=== PATIENT | male | born 1965 | race Caucasian/White ===

== ENCOUNTER 2025-01-04 14:12 | Emergency (ER) | payer OTHER ==
--- OUTSIDE RECORDS SUMMARY | 2025-01-04 14:17 | XMS REPORT | Continuity of Care Document ---
Author Name Unknown Address [address] [facility] [address] [place] [address] [facility] Address [address] [facility] 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 Phone Miguel CORTEZ, Priscila Tee [facility] SHE[facility] MUIR Attending Clinician Unavailable MARILYN HARRINGTON Attending Clinician Unavailable MINGO VELASCO Attending Clinician Unavailab MEEK Boyd Attending Clinician Unavailab MAURI Salamanca Attending Clinician Unavailable [id number] Attending Clinician Unavailable NESTOR HUMPHREYS Attending Clinician Unavailable [id number] Attending Clinician Unavailable PRISCILA RIVERA Attending Clinician Unavailable SHAHLA HOLBROOK Attending Clinician U DOLLY De Paz Attending Clinician Unava ilable ZIYAD GLORIA Attending Clinician Unavailable [id number] Attending Clinician Unavailable DECLAN SANDHU Attending Clinician Unavailable MD HELLEN Attending Clinician Unavailab eleni RADIOLOGY, DEPT Attending Clinician Unavailable SUJEY CLAYTON Attending Clinician Unavailable XAVI CHÁVEZ Attending Clinician Unavailable CRISS PETERSEN Attending Clinician Unava ilable PRO TALBERT Attending Clinician Unavailable ALEXX HIRSCH Attending Clinician Unavailable RICHIE PERKINS Attending Clinician Unavailable FRAN GUARDADO Attending Clinician Unavailab KATIA Otto Attending Clinician Unav SISI Ramos Attending Clinician UnavailSUSI Moreno Attending Clinician Unavailable LAB47 Attending Clinician Unavailable FL1, [id number] Attending Clinician Unavailable Minor CORTEZ, Shelly Attending Clinician Miguel CORTEZ, Priscila Tee Attending Clinic jenn MAHAMED WATSON Attending Clinician Unavail able Payers Payer Name Policy Type Policy Number Effective Date Expirati on Date Source [facility] 2019 9 [id number] 2022 00:00:00 Problems Condition Name Condition Details Condition Category Status Onset Date Resolution Date Last Treatment Date Treating Clinician Comments Source Sensorineu ral hearing loss (SNHL) of both ears Sensorineu ral hearing loss (SNHL) of both ears Disease Active 12-20 00:00: 00 Althea Seedenold - Externa l Mixed hyperlipid emia Mixed hyperlipid emia Disease Active 12-20 00:00: 00 Althea Davenportold - Externa l History of dysplastic nevus History of dysplastic nevus Disease Active 9 00:00: 00 Althea Davenportold - Externa l Migraine Migraine Disease Active 04-27 00:00: 00 Althea Davenportold - Externa l Allergies, Adverse Reactions, Alerts Allergy Name Allergy Type Status Severity Reaction(s) Onset Date Inactive Date Treating Clinician Comments Source Na Benzoate -Sulfame thoxazol e-Trimet hoprim Propensi ty to adverse reaction s Active Rash 2023-10 00:00: 00 Althea Davenportold - Externa l Topirama te Propensi ty to adverse reaction s Active 01-13 00:00: 00 Althea Davenportold Topirama te Propensi ty to adverse reaction s Active 01-13 00:00: 00 Althea Douglas - Externa l Fd&C Yellow #10 Aluminum Garza-Top iramate Propensi ty to adverse reaction s Active Other 2014-10 00:00: 00 Vision issues Althea Davenportold - Externa l Social History Social Habit Start Date Stop Date Quantity Comments Source History of tobacco use Chews Tobacco Althea Douglas - External Gender identity Negrita Douglas - External Sexual orientation David Douglas - External History SDOH Alcohol Frequency Althea lao - External History SDOH Alcohol Std Drinks Althea griffith - External History SDOH Alcohol Binge Althea Douglas - External History of Occupation Althea Douglas - External Alcoholic beverage intake 2024-12-20 00:00:00 2024-12-20 00:00:00 .86 /d Althea Douglas - External Alcohol intake 2023-11-20 00:00:00 2023-11-20 00:00:00 Current drinker of alcohol (finding) Althea Douglas - External History of Social function 2023-04-21 00:00:00 2023-04-21 00:00:00 Althea Aguirreedenfransisca - External Tobacco use and exposure 2023-04-03 00:00:00 2023-04-03 00:00:00 Former smokeless tobacco user Althea Douglas - External Exposure to SARS-CoV-2 (event) 2022-06-25 00:00:00 2022-07-05 10:49:00 Not sure Althea Douglas - External Alcohol Comment 2015-06-24 00:00:00 2015-06-24 00:00:00 Occasionally Althea Douglas - External Sex 2015-02-04 23:17:01 2015-02-04 23:17:01 Male (finding) Althea Douglas - External Sex [birth year] at 1965 00:00:00 1965 00:00:00 Althea Douglas - External Smoking Status Start Date Stop Date Source Never smoked tobacco Althea Aguirreedenfransisca - External Medications Ordered Medication Name Filled Medication Name Start Date Stop Date Current Medication? Ordering Clinician Indication Dosage Frequency Signature (SIG) Comments Components Source Atorvastati n Calcium 40 MG oral Tablet 12-20 00:00: 00 Yes [id number] 40mg QD Take 1 tablet (40 mg total) by mouth daily. Althea joshi FLUTICASONE PROPIONATE, NASAL, 50 MCG/ACT nasal Suspension 12-09 00:00: 00 01-09 04:59 :00 Yes [id number] 100ug Q.5D Use 2 sprays (100 mcg total) in each nostril 2 times daily. Althea joshi Fluocinolon e Acetonide (DermOtic) 0.01 % otic Oil 3-03 00:00: 00 12-20 00:00 :00 No [id number] 5[drp] Q.5D Place 5 drops into both ears 2 times daily. Althea joshi Triamcinolo ne Acetonide 0.1 % apply externally Ointment 2-18 00:00: 00 12-20 00:00 :00 No [id number] Apply to affected areas twice daily for up to two weeks. Then use as needed to affected areas.. Althea joshi Tamsulosin HCl 0.4 MG oral Capsule 1-10 00:00: 00 Yes [id number] .4mg QD Take 1 capsule (0.4 mg total) by mouth daily. Althea joshi Atorvastanina n Calcium 40 MG oral Tablet 9-13 00:00: 00 12-20 00:00 :00 No 40mg QD Take 1 tablet (40 mg total) by mouth daily. Althea joshi Na Sulfate-K Sulfate-Mg Sulf (SUPREP BOWEL PREP KIT) 17.5-3.13-1 .6 GM/177ML oral Solution 9-11 00:00: 00 Yes [id number] Instructio ns provided to patient. Follow instructio ns provided by provider.. Althea joshi Atorvastati n Calcium 40 MG oral Tablet 9-10 00:00: 00 Yes 40mg QD Take 1 tablet (40 mg total) by mouth daily. Althea joshi Metoprolol Tartrate (LOPRESSOR) 50 MG oral Tablet 8-05 00:00: 00 12-20 00:00 :00 No TAKE 1 TABLET BY MOUTH ONCE FOR [address] MORNING OF [address] STUDY Althea joshi Tamsulosin HCl 0.4 MG oral Capsule 7-17 00:00: 00 Yes [id number] .4mg QD Take 1 capsule (0.4 mg total) by mouth daily. Althae joshi Ciprofloxac in-dexAMETH asone 0.3-0.1 % otic Suspension 02-01 00:00: 00 12-20 00:00 :00 No [id number] 3[drp] Q.5D Place 3 drops into the left ear 2 times daily. Althea joshi Lorazepam (ATIVAN) 0.5 MG oral Tablet tablet 01-28 00:00: 00 12-20 00:00 :00 No .5mg [id number] 3D Take 1 tablet (0.5 mg total) by mouth every 8 hours as needed for anxiety Take 2 tablets po upon arrival to MRI for claustroph obia.. Althea joshi Cephalexin (Keflex) 500 MG oral Capsule 01-28 00:00: 00 02-01 00:00 :00 No 500mg Take 1 capsule (500 mg total) by mouth 4 times daily. Althea joshi Clotrimazol e-Betametha sone 1-0.05 % apply externally Cream 3-18 00:00: 00 12-20 00:00 :00 No [id number] Apply to rash as needed twice daily. Althea joshi Gabapentin 300 MG oral Capsule 2-12 00:00: 00 02-01 00:00 :00 No 1 po q HS x 7 days, then 1 po BID x 7 days, then 1 po TID. Althea joshi Gabapentin 300 MG oral Capsule 2022-10 1-06 00:00: 00 Yes 1 po q HS x 7 days, then 1 po BID x 7 days, then 1 po TID. Althea joshi Lorazepam (ATIVAN) 0.5 MG oral Tablet tablet 2022-10- 00:00: 00 Yes Take 2 tablets po upon arrival to MRI for claustroph obia.. Althea joshi Gabapentin 300 MG oral Capsule 8-21 00:00: 00 Yes 300mg Take 1 capsule (300 mg total) by mouth 3 times daily. Althea joshi Gabapentin 300 MG oral Capsule 6-20 00:00: 00 Yes 300mg Take 1 capsule (300 mg total) by mouth 3 times daily Althea joshi methylPREDN ISolone 4 MG oral Tablet Therapy Pack 6-14 00:00: 00 04-03 00:00 :00 No 1{stevan} Take 1 stevan by mouth See Admin Instructio ns Use as directed Althea joshi Efinaconazo le (Jublia) 10 % apply externally Solution - 00:00: 00 11-20 00:00 :00 No [id number] Apply to affected nail(s) once daily Althea joshi TRIMETHOPRI M-SULFAMETH OXAZOLE (BACTRIM DS) 800-160 MG oral Tablet 01-09 00:00: 00 04-03 00:00 :00 No 1{tbl} Take 1 tablet by mouth 2 times daily for 7 days Althea joshi methylPREDN ISolone 4 MG oral Tablet Therapy Pack 2021-10 00:00: 00 Yes 1{stevan} Take 1 stevan by mouth See Admin Instructio ns Use as directed Althea joshi Efinaconazo le (Jublia) 10 % apply externally Solution 03-02 00:00: 00 07-05 00:00 :00 No Apply to affected nail daily Althea joshi methylPREDN ISolone 4 MG oral Tablet Therapy Pack 01-13 00:00: 00 Yes [id number] 9100 1{stevan} Take 1 stevan by mouth See Admin Instructio ns Use as directed Althea Douglas No known medications 06-16 13:49: 06 No No known medication s Althea Douglas Immunizations Ordered Immunization Name Filled Immunization Name Date Status Comments Source Influenza Virus Vaccine, age 6 months and up 2021-07-12 00:00:00 Completed Althea Douglas - External Influenza Virus Vaccine, age 6 months and up 2021-07-12 00:00:00 Completed Althea Heath External Influenza Virus Vaccine, age 6 months and up 2021-07-12 00:00:00 Completed Althea Seybold - External Influenza Virus Vaccine, age 6 months and up 2021-07-12 00:00:00 Completed Althea Seybold Influenza Virus Vaccine, age 6 months and up 2021-07-12 00:00:00 Completed Althea Seybold Influenza Virus Vaccine, age 6 months and up 2021-07-12 00:00:00 Completed Althea Seybold - External Influenza Virus Vaccine, age 6 months and up 2020-06-29 00:00:00 Completed Althea Seybold - External Influenza Virus Vaccine, age 6 months and up 2020-06-29 00:00:00 Completed Althea Seybold - External Influenza Virus Vaccine, age 6 months and up 2020-06-29 00:00:00 Completed Althea Seybold - External Influenza Virus Vaccine, age 6 months and up 2020-06-29 00:00:00 Completed Althea Seybold Influenza Virus Vaccine, age 6 months and up 2020-06-29 00:00:00 Completed Althea Seybold Influenza Virus Vaccine, age 6 months and up 2020-06-29 00:00:00 Completed Althea Seybold Influenza Virus Vaccine, age 6 months and up 2020-06-29 00:00:00 Completed Althea Seybold - External Influenza Virus Vaccine, age 6 months and 2019-07-15 00:00:00 Completed Althea Seybold - External Influenza Virus Vaccine, age 6 months and 2019-07-15 00:00:00 Completed Althea Seybold - External Influenza Virus Vaccine, age 6 months and 2019-07-15 00:00:00 Completed Althea Seybold - External Influenza Virus Vaccine, age 6 months and 2019-07-15 00:00:00 Completed Althea Seybold Influenza Virus Vaccine, age 6 months and up 2019-07-15 00:00:00 Completed Althea Seybold Influenza Virus Vaccine, age 6 months and 2019-07-15 00:00:00 Completed Althea Seybold Influenza Virus Vaccine, age 6 months and 2019-07-15 00:00:00 Completed Althea Seybold - External Influenza Virus Vaccine, age 6 months and up 2018-07-18 00:00:00 Completed Althea Seybold - External Influenza Virus Vaccine, age 6 months and 2018-07-18 00:00:00 Completed Althea Seybold - External Influenza Virus Vaccine, age 6 months and up 2018-07-18 00:00:00 Completed Althea Seybold - External Influenza Virus Vaccine, age 6 months and up 2018-07-18 00:00:00 Completed Althea Seybold Influenza Virus Vaccine, age 6 months and up 2018-07-18 00:00:00 Completed Althea Seybold Influenza Virus Vaccine, age 6 months and up 2018-07-18 00:00:00 Completed Althea Seybold Influenza Virus Vaccine, age 6 months and up 2018-07-18 00:00:00 Completed Althea Seybold - External Influenza Virus Vaccine, age 6 months and up 2017-07-11 00:00:00 Completed Althea Seybold - External Influenza Virus Vaccine, age 6 months and up 2017-07-11 00:00:00 Completed Althea Seybold - External Influenza Virus Vaccine, age 6 months and up 2017-07-11 00:00:00 Completed Althea Seybold - External Influenza Virus Vaccine, age 6 months and up 2017-07-11 00:00:00 Completed Althea Seybold Influenza Virus Vaccine, age 6 months and up 2017-07-11 00:00:00 Completed Althea Seybold Influenza Virus Vaccine, age 6 months and up 2017-07-11 00:00:00 Completed Althea Seybold Influenza Virus Vaccine, age 6 months and up 2017-07-11 00:00:00 Completed Althea Seybold - External Influenza Virus Vaccine, age 6 months and up 2015-07-13 00:00:00 Completed Althea Seybold - External Influenza Virus Vaccine, age 6 months and up 2015-07-13 00:00:00 Completed Althea Seybold - External Influenza Virus Vaccine, age 6 months and up 2015-07-13 00:00:00 Completed Althea Seybold - External Influenza Virus Vaccine, age 6 months and up 2015-07-13 00:00:00 Completed Althea Seybold Influenza Virus Vaccine, age 6 months and up 2015-07-13 00:00:00 Completed Althea Seybold Influenza Virus Vaccine, age 6 months and up 2015-07-13 00:00:00 Completed Althea Seybold Influenza Virus Vaccine, age 6 months and up 2015-07-13 00:00:00 Completed Althea Seybold - External Tdap- (Boostrix, Adacel) 2013-04-26 00:00:00 Completed Althea Seybold - External Tdap- (Boostrix, Adacel) 2013-04-26 00:00:00 Completed Althea Seybold - External Tdap- (Boostrix, Adacel) 2013-04-26 00:00:00 Completed Althea Seybold - External Tdap- (Boostrix, Adacel) 2013-04-26 00:00:00 Completed Althea Seybold Tdap- (Boostrix, Adacel) 2013-04-26 00:00:00 Completed Althea Seybold Tdap- (Boostrix, Adacel) 2013-04-26 00:00:00 Completed Althea Seybold Tdap- (Boostrix, Adacel) 2013-04-26 00:00:00 Completed Althea Seybold - External Tdap- (Boostrix, Adacel) Unknown Completed Althea Seybold - External Influenza Virus Vaccine, age 6 months and up Unknown Completed Althea Seybold - External Tdap- (Boostrix, Adacel) Unknown Completed Althea Seybold - External Influenza Virus Vaccine, age 6 months and up Unknown Completed Althea Seybold - External Influenza Virus Vaccine, Unspecified Formulation Unknown Completed Althea Seybold - External Tdap- (Boostrix, Adacel) Unknown Completed Althea Seybold - External Influenza Virus Vaccine, age 6 months and up Unknown Completed Althea Seybold - External Influenza Virus Vaccine, Unspecified Formulation Unknown Completed Althea Seybold - External Tdap- (Boostrix, Adacel) Unknown Completed Althea Seybold - External Influenza Virus Vaccine, age 6 months and up Unknown Completed Althea Seybold - External Influenza Virus Vaccine, Unspecified Formulation Unknown Completed Althea Seybold - External Tdap- (Boostrix, Adacel) Unknown Completed Althea Seybold - External Influenza Virus Vaccine, age 6 months and up Unknown Completed Althea Seybold - External Influenza Virus Vaccine, Unspecified Formulation Unknown Completed Althea Seybold - External Tdap- (Boostrix, Adacel) Unknown Completed Althea Seybold - External Influenza Virus Vaccine, age 6 months and up Unknown Completed Althea Seybold - External Influenza Virus Vaccine, Unspecified Formulation Unknown Completed Althea Seybold - External Tdap- (Boostrix, Adacel) Unknown Completed Althea Aguirreybold - External Influenza Virus Vaccine, age 6 months and up Unknown Completed Althea Seybold - External Influenza Virus Vaccine, Unspecified Formulation Unknown Completed Althea Seybold - External Tdap- (Boostrix, Adacel) Unknown Completed Althea Aguirreybold - External Influenza Virus Vaccine, age 6 months and up Unknown Completed Althea Seybold - External Influenza Virus Vaccine, Unspecified Formulation Unknown Completed Althea Seybold - External Tdap- (Boostrix, Adacel) Unknown Completed Althea Seybold - External Influenza Virus Vaccine, age 6 months and up Unknown Completed Althea Seybold - External Influenza Virus Vaccine, Unspecified Formulation Unknown Completed Althea Seybold - External Vital Signs Vital Name Observation Time Observation Value Comments S ource Systolic blood pressure 2024-12-20 13:02:00 134 mm[Hg] Althea Aguirreybo ld - External Diastolic blood pressure 2024-12-20 13:02:00 72 mm[Hg] Althea Aguirreybo ld - External Heart rate 2024-12-20 13:02:00 63 /min Kel y Seybold - External Body temperature 2024-12-20 13:02:00 36.5 Rula Althea Seybold - External Respiratory rate 2024-12-20 13:02:00 15 /min Althea Aguirreybold - External Body height 2024-12-20 13:02:00 185.4 cm Negrita ey Seybold - External Body weight 2024-12-20 13:02:00 102.967 kg Negrita ey Seybold - External BMI 2024-12-20 13:02:00 29.95 kg/m2 Negrita ey Seybold - External Oxygen saturation in Arterial blood by Pulse oximetry 2024-12-20 13:02:00 97 /min Althea Davenporto ld - External Body height 2024-12-09 14:16:00 185.4 cm Negrita ey Seybold - External Body weight 2024-12-09 14:16:00 102.059 kg Negrita ey Seybold - External BMI 2024-12-09 14:16:00 29.69 kg/m2 Negrita ey Seybold - External Systolic blood pressure 2024-04-24 13:07:00 114 mm[Hg] Althea Aguirreybo ld - External Diastolic blood pressure 2024-04-24 13:07:00 56 mm[Hg] Althea Aguirreybo ld - External Heart rate 2024-04-24 13:07:00 70 /min Kelse y Seybold - External Body temperature 2024-04-24 13:07:00 36.44 Rula Althea Seybold - External Respiratory rate 2024-04-24 13:07:00 18 /min Althea Seybold - External Body height 2024-04-24 13:07:00 185.4 cm Negrita ey Seybold - External Body weight 2024-04-24 13:07:00 105.688 kg w/shoes Negrita ey Seybold - External BMI 2024-04-24 13:07:00 30.74 kg/m2 Negrita ey Seybold - External Oxygen saturation in Arterial blood by Pulse oximetry 2024-04-24 13:07:00 97 /min Althea Aguirreybo ld - External Systolic blood pressure 2024-02-02 12:49:00 124 mm[Hg] Althea Aguirreybo ld - External Diastolic blood pressure 2024-02-02 12:49:00 68 mm[Hg] Althea Aguirreybo ld - External Heart rate 2024-02-02 12:49:00 89 /min Danielse y Seybold - External Body temperature 2024-02-02 12:49:00 35.56 Rula Althea Aguirreybold - External Respiratory rate 2024-02-02 12:49:00 15 /min Althea Seybold - External Body height 2024-02-02 12:49:00 185.4 cm Negrita ey Seybold - External Body weight 2024-02-02 12:49:00 104.781 kg Negrita ey Seybold - External BMI 2024-02-02 12:49:00 30.48 kg/m2 Negrita ey Seybold - External Body height 2023-11-20 16:43:00 185.4 cm Negrita ey Seybold - External Body weight 2023-11-20 16:43:00 106.595 kg Negrita ey Seybold - External BMI 2023-11-20 16:43:00 31.00 kg/m2 Negrita ey Seybold - External Systolic blood pressure 2023-11-20 15:36:00 132 mm[Hg] Althea Seybo ld - External Diastolic blood pressure 2023-11-20 15:36:00 68 mm[Hg] Althea Seybo ld - External Heart rate 2023-11-20 15:36:00 64 /min Danielse y Seybold - External Body temperature 2023-11-20 15:36:00 30.67 Rula Althea Seybold - External Respiratory rate 2023-11-20 15:36:00 18 /min Althea Seybold - External Body weight 2023-11-20 15:36:00 106.595 kg Negrita ey Seybold - External BMI 2023-11-20 15:36:00 31.00 kg/m2 Negrita ey Seybold - External Oxygen saturation in Arterial blood by Pulse oximetry 2023-11-20 15:36:00 98 /min Althea Aguirreybo ld - External Body height 2023-08-14 13:58:00 185.4 cm Negrita ey Seybold - External Body weight 2023-08-14 13:58:00 99.791 kg Negrita ey Seybold - External BMI 2023-08-14 13:58:00 29.03 kg/m2 Negrita ey Seybold - External Body weight 2023-04-03 18:05:00 105.688 kg Negrita ey Seybold - External BMI 2023-04-03 18:05:00 30.74 kg/m2 Negrita ey Seybold - External BMI 2022-07-05 15:44:00 29.82 kg/m2 Negrita ey Seybold - External Oxygen saturation in Arterial blood by Pulse oximetry 2022-07-05 15:44:00 98 /min Althea Aguirreybo ld - External Systolic blood pressure 2022-07-05 15:44:00 124 mm[Hg] Althea Seybo ld - External Diastolic blood pressure 2022-07-05 15:44:00 68 mm[Hg] Althea Aguirreybo ld - External Heart rate 2022-07-05 15:44:00 62 /min Danielse y Seybold - External Body temperature 2022-07-05 15:44:00 36.5 Rula Althea Seybold - External Respiratory rate 2022-07-05 15:44:00 18 /min Althea Seybold - External Body height 2022-07-05 15:44:00 185.4 cm Negrita ey Seybold - External Body weight 2022-07-05 15:44:00 102.513 kg w/ shoes Negrita ey Seybold - External Systolic blood pressure 2022-01-13 13:22:00 122 mm[Hg] Althea Seybo ld Diastolic blood pressure 2022-01-13 13:22:00 62 mm[Hg] Althea Seybo ld Heart rate 2022-01-13 13:22:00 66 /min Kelse y Seybold Body temperature 2022-01-13 13:22:00 36.44 Rula Althea Seybold Respiratory rate 2022-01-13 13:22:00 18 /min Althea Seybold Body height 2022-01-13 13:22:00 185.4 cm Negrita ey Seybold Body weight 2022-01-13 13:22:00 106.595 kg with boots Negrita ey Seybold BMI 2022-01-13 13:22:00 31.00 kg/m2 Negrita ey Seybold Procedures Procedure Date / Time Performed Performing Clinicia n Source CHEST PA LATERAL 2024-04-24 13:36:40 Siri Rivera - External KNEE ROUTINE 40 YEARS AND OLDER BILATERAL 2022-01-13 14:06:51 Priscila Rivera Encounters Start Date/Time End Date/Time Encounter Type Admission Type Attending [facility] Facility Care Department Encounter ID Source 2025-04-04 08:00:00 2025-04-04 08:00:00 Outpatient SHELLY MUIR [id number] Althea ybfransisca 2025-01-28 11:20:00 2025-01-28 11:20:00 Outpatient [facility]N [facility]ARR[id number] [facility] 2025-01-28 08:40:00 2025-01-28 08:40:00 Outpatient MINGO VELASCO [id number] Althe[facility] 2025-01-04 12:30:00 2025-01-04 12:30:00 Outpatient MEEK JEFFREY ALTHEA JIMENEZ [id number] Althea Seybold 2025-01-04 00:00:00 2025-01-04 00:00:00 Outpatient MAURI FONSECA ALTHEA JIMENEZ [id number] Althea Seybfransisca 2025-01-04 00:00:00 2025-01-04 00:00:00 Outpatient MAURI FONSECA ALTHEA JIMENEZ [id number] [facility] 2024-12-26 08:50:00 2024-12-26 08:50:00 Outpatient LAB90 ALTHEA JIMENEZ [id number] [facility] 2024-12-24 00:00:00 2024-12-24 00:00:00 Outpatient NESTOR HUMPHREYS ALTHEA JIMENEZ [id number] [facility] 2024-12-24 00:00:00 2024-12-24 00:00:00 Outpatient NESTOR HUMPHREYS ALTHEA JIMENEZ [id number] [facility] 2024-12-20 09:15:00 2024-12-20 09:15:00 Outpatient [id number] ALTHEA JIMENEZ [id number] [facility] 2024-12-20 08:30:00 2024-12-20 08:30:00 Outpatient NESTOR HUMPHREYS ALTHEA JIMENEZ [id number] [facility] 2024-12-13 00:00:00 2024-12-13 00:00:00 Outpatient PRISCILA RIVERA [id number] [facility] 2024-12-09 09:15:00 2024-12-09 09:15:00 Outpatient SHELLY MUIR [id number] [facility] 2024-12-09 08:00:00 2024-12-09 08:00:00 Outpatient SHAHLA STYLES [id number] [facility] 2024-11-26 09:30:00 2024-11-26 09:30:00 [id number] [facility]24-[facility]-21 00:00:2024-11-21 00:00:00 Outpatient PRISCILA RIVERA ALTHEA JIMENEZ [id number] [facility] 2024-10-17 00:00:00 2024-10-17 00:00:00 Outpatient PRISCILA RIVERA ALTHEA JIMENEZ [id number] [facility]a [facility] 2024-08-28 00:00:00 2024-08-28 00:00:00 Outpatient PRISCILA RIVERA [facility]IMENEZ [id number] [facility] 2024-08-26 09:00:00 2024-08-26 09:00:00 Outpatient FAIZAN, ZIYADOBED JIMENEZ [id number] Al[facility] 2024-08-09 10:00:00 2024-08-09 10:00:00 Outpatient TREEduard7 ALTHEA JIMENEZ [id number] Althea [facility] 2024-07-09 14:45:00 2024-07-09 14:45:00 Outpatient DECLAN SANDHU [id number] Al[facility] 2024-06-25 00:00:00 2024-06-25 00:00:00 Outpatient ALTHEA JIMENEZ [id number] Al[facility] 2024-06-25 00:00:00 2024-06-25 00:00:00 Outpatient MD ALTHEA CONWAY [id number] Al[facility] 2024-06-25 00:00:00 2024-06-25 00:00:00 Outpatient MD ALTHEA CONWAY [id number] Al[facility] 2024-06-21 00:00:00 2024-06-21 00:00:00 Outpatient MIGUELPRISCILA ALTHEA JIMENEZ [id number] [facility] 2024-06-19 15:30:00 2024-06-19 15:30:00 Outpatient ZIYAD GLORIA [id number] [facility] 2024-06-19 15:30:00 2024-06-19 15:30:00 Outpatient ZIYAD GLORIA [id number] [facility] 2024-06-19 00:00:00 2024-06-19 00:00:00 Outpatient MD ALTEHA CONWAY [id number] [facility]a [facility] 2024 09:00:00 2024 09:00:00 Outpatient ALTHEA JIMENEZ [id number] Althea Stella 2024-06-11 11:15:00 2024-06-11 11:15:00 Outpatient CHINO MUIRITA ALTHEA JIMENEZ [id number] Althea Aguirreybfransisca 2024-06-07 11:40:00 2024-06-07 11:40:00 Outpatient LAB90 ALTHEA JIMENEZ [id number] Althea Stella 2024-06-07 00:00:00 2024-06-07 00:00:00 Outpatient SHELLY MUIR [id number] [facility] 2024-05-13 00:00:00 2024-05-13 00:00:00 Outpatient PRISCILA RIVERA [id number] [facility] 2024-05-12 00:00:00 2024-05-12 00:00:00 Outpatient PRISCILA RIVERA [id number] [facility] 2024-05-11 00:00:00 2024-05-11 00:00:00 Outpatient PRISCILA RIVERA [id number] Althea [facility] 2024-05-10 00:00:00 2024-05-10 00:00:00 Outpatient PRISCILA RIVERA [id number] Althea [facility] 2024-05-09 00:00:00 2024-05-09 00:00:00 Outpatient PRISCILA RIVERA [id number] [facility] 2024-04-29 00:00:00 2024-04-29 00:00:00 Outpatient RADIOLOGY, DEPT ALTHEA JIMENEZ [id number] [facility] 2024-04-26 00:00:00 2024-04-26 00:00:00 Outpatient PRISCILA RIVERA [id number] Althea [facility] 2024-04-24 08:45:00 2024-04-24 08:45:00 Outpatient SUJEY CLAYTONSEY [id number] [facility] 2024-04-24 08:25:00 2024-04-24 08:25:00 Outpatient ALTHEA JIMENEZ [id number] Althea [facility]ansisca 2024-04-24 08:00:00 2024-04-24 08:00:00 Outpatient RIVERAPRISCILA ALTHEA JIMENEZ [id number] [facility] 2024-04-24 00:00:00 2024-04-24 00:00:00 Outpatient KYLERXAVI ALTHEA JIMENEZ [id number] [facility] 2024-02-02 08:00:00 2024-02-02 08:00:00 Outpatient JETT PETERSENAN ALTHEA JIMENEZ [id number] [facility] 2024-01-28 00:00:00 2024-01-28 00:00:00 Outpatient MIGUELPRISCILA [facility] [id number] [facility] 15:15:00 2024-01-24 15:15:00 Outpatient SUJEY CLAYTON ALTHEA JIMENEZ [id number] [facility] 2024-01-10 00:00:00 2024-01-10 00:00:00 Outpatient BERNIEPRO Varela ALTHEA JIMENEZ [id number] [facility] 2023-12-24 00:00:00 2023-12-24 00:00:00 Outpatient MIGUELPRISCILA ALTHEA JIMENEZ [id number] [facility] 2023-12-07 09:15:00 2023-12-07 09:15:00 Outpatient ALEXX HIRSCH [id number] [facility] 2023-12-07 08:45:00 2023-12-07 08:45:00 Outpatient ALTHEA JIMENEZ [id number] Althea [facility] 2023-12-06 00:00:00 2023-12-06 00:00:00 Outpatient ALEXX HIRSCH [id number] [facility] 2023-12-06 00:00:00 2023-12-06 00:00:00 Outpatient RICHIE PERKINS [id number] Althea Douglas 2023-11-24 08:00:00 2023-11-24 08:00:00 Outpatient TREEduard7 ALTHEA JIMENEZ [id number] Althea Douglas 2023-11-24 00:00:00 2023-11-24 00:00:00 Outpatient ALEXX HIRSCH ALTHEA JIMENEZ [id number] Althea Douglas 2023-11-24 00:00:00 2023-11-24 00:00:00 Outpatient ALTHEA JIMENEZ [id number] Althea Stella 2023-11-23 00:00:00 2023-11-23 00:00:00 Outpatient ALEXX HIRSCH ALTHEA JIMENEZ [id number] Althea Douglas 2023-11-22 00:00:00 2023-11-22 00:00:00 Outpatient CATY, SUJEY ALTHEA JIMENEZ [id number] Althea Douglas 2023-11-21 00:00:00 2023-11-21 00:00:00 Outpatient CLAYTON, SUJEY ALTHEA JIMENEZ [id number] Althea [facility] 2023-11-20 10:45:00 2023-11-20 10:45:00 Outpatient CLAYTON, SUJEY ALTHEA JIMENEZ [id number] Althea [facility] 2023-11-20 09:15:00 2023-11-20 09:15:00 Outpatient PRISCILA RIVERA [id number] Althea Douglas 2023-11-17 08:00:00 2023-11-17 08:00:00 Outpatient LAB90 ALTHEA JIMENEZ [id number] Althea fransisca 2023-11-15 11:00:00 2023-11-15 11:00:00 Outpatient FRAN GUARDADO [id number] [facility] 2023-11-13 00:00:00 2023-11-13 00:00:00 Outpatient PRISCILA RIVERA [id number] [facility] 2023-11-02 00:00:00 2023-11-02 00:00:00 [facility] [id number] [facility]23-10-25 07:45:00 2023-10-25 07:45:00 Outpatient ALTHEA JIMENEZ [id number] [facility] 2023-10-25 00:00:00 2023-10-25 00:00:00 Outpatient MD ALTHEA CONWAY [id number] Althea [facility] 2023-08-30 00:00:00 2023-08-30 00:00:00 Outpatient MD ALTHEA CONWAY [id number] [facility] 2023-08-28 00:00:00 2023-08-28 00:00:00 Outpatient ALTHEA JIMENEZ [id number] [facility] 2023-08-15 00:00:00 2023-08-15 00:00:00 Outpatient PRISCILA RIVERA [id number] [facility] 2023-08-14 09:05:00 2023-08-14 09:05:00 Outpatient ALTHEA JIMENEZ [id number] [facility] 2023-08-14 09:00:00 2023-08-14 09:00:00 Outpatient ALTHEA JIMENEZ [id number] [facility] 2023-08-14 08:00:00 2023-08-14 08:00:00 Outpatient SUJEY CLAYTON [id number] [facility] 2023-08-14 00:00:00 2023-08-14 00:00:00 Outpatient ALTHEA JIMENEZ [id number] [facility] 2023-06-29 00:00:00 2023-06-29 00:00:00 Outpatient PRISCILA RIVERA [id number] [facility] 2023-05-29 00:00:00 2023-05-29 00:00:00 Outpatient PRISCILA RIVERA [id number] Althea [facility] 2023-05-22 08:45:00 2023-05-22 08:45:00 Outpatient KATIA OWENS [id number] [facility] 2023-04-25 00:00:00 2023-04-25 00:00:00 Outpatient PRISCILA RIVERA [id number] Althe[facility] 2023-04-21 14:30:00 2023-04-21 14:30:00 Outpatient SISI AGUILLON ALTHEA JIMENEZ [id number] [facility] 2023-04-07 00:00:00 2023-04-07 00:00:00 Outpatient CECILY, SUSI ALTHEA JIMENEZ [id number] Al[facility] 2023-04-06 08:30:00 2023-04-06 08:30:00 Outpatient SANDHU DECLAN JIMENEZ [id number] Althea [facility] 2023-04-05 13:30:00 2023-04-05 13:30:00 Outpatient ALTHEA JIMEENZ [id number] [facility] 2023-04-03 14:00:00 2023-04-03 14:00:00 Outpatient CECILY, SUSI ALTHEA JIMENEZ [id number] [facility] 2023-04-03 12:25:00 2023-04-03 12:25:00 Outpatient ALTHEA JIMENEZ [id number] [facility] 2023-04-03 00:00:00 2023-04-03 00:00:00 Outpatient CECILY, SUSI ALTHEA JIMENEZ [id number] [facility] 2023-03-22 08:30:00 2023-03-22 08:30:00 Outpatient SHELLY MUIR ALTHEA JIMENEZ [id number] Al[facility] 2023-03-20 00:00:00 2023-03-20 00:00:00 Outpatient PRISCILA RIVERA [id number] [facility] 2023-03-13 00:00:00 2023-03-13 00:00:00 Outpatient PRISCILA RIVERA [id number] [facility] 2023-02-08 00:00:00 2023-02-08 00:00:00 Outpatient DECLAN SANDHU [id number] [facility] 2023-01-09 00:00:00 2023-01-09 00:00:00 Outpatient PRISCILA RIVERA [id number] [facility] 2023-01-05 10:15:00 2023-01-05 10:15:00 Outpatient DECLAN SANDHU ALTHEA JIMENEZ [id number] Althea Douglas 2022-09-13 00:00:00 2022-09-13 00:00:00 Outpatient PRISCILA RIVERA [id number] Althea Douglas 2022-09-06 07:30:00 2022-09-06 07:30:00 Outpatient MUIR, SHELLY ALTHEA JIMENEZ [id number] Althea Douglas 2022-07-05 11:15:00 2022-07-05 11:15:00 Outpatient LAB47 ALTHEA JIMENEZ [id number] Althea Stella 2022-07-05 10:30:00 2022-07-05 10:30:00 Outpatient PRISCILA RIVERA [id number] Althea Douglas 2022-03-17 00:00:00 2022-03-17 00:00:00 Outpatient PRISCILA RIVERA [id number] Althea [facility] 2022-03-02 08:10:00 2022-03-02 08:10:00 Outpatient FL1, [id number] ALTHEA JIMENEZ [id number] Althea Douglas 2022-03-02 07:45:00 2022-03-02 08:00:00 Office Visit [facility] [id number] Althea Stella 2022-01-13 09:10:00 2022-01-13 09:10:00 Outpatient LABTerri ALTHEA JIMENEZ [id number] Althea Douglas 2022-01-13 08:30:00 2022-01-13 08:45:00 Office Visit Priscila Rivera [id number] Althea Stella 2022-01-13 08:40:00 2022-01-13 08:40:00 Outpatient ALTHEA JIMENEZ [id number] Althea [facility] 2021-12-28 08:00:00 2021-12-28 08:00:00 Outpatient MAHAMED WATSON ALTHEA [id number] Althea Douglas 2021-12-24 00:00:00 2021-12-24 00:00:00 Outpatient MAHAMED WATSON ALTHEA ALTHEA [id number] Althea Douglas 2021-12-14 08:30:00 2021-12-14 08:30:00 Outpatient SHELLY MUIR ALTHEA JIMENEZ [id number] Althea Douglas 2021-06-16 13:44:15 2021-06-16 13:59:15 Office Visit [facility] [id number] Althea Douglas 2021-06-16 07:25:00 2021-06-16 07:25:00 Outpatient FL1, [id number] ALTHEA JIMENEZ [id number] Althea Douglas 2021-06-16 00:00:00 2021-06-16 00:00:00 Outpatient PRISCILA RIVERA ALTHEA JIMENEZ [id number] Althea Douglas 2021-06-15 08:45:00 2021-06-15 08:45:00 Outpatient LAB47 ALTHEA JIMENEZ [id number] Althea Douglas 2021-06-15 08:00:00 2021-06-15 08:00:00 Outpatient MAHAMED WATSON ALTHEA JIMENEZ [id number] Althea Douglas 2021-04-22 08:30:00 2021-04-22 08:30:00 Outpatient SHELLY MUIR ALTHEA JIMENEZ [id number] Althea Stella Results Test Description Test Time Test Comments Results Resul t Comments Source CHEST PA LATERAL 2024-04-08 7 13:38:37 EXAM: CHEST PA ?LATERAL HISTORY: shortness of breath VIEWS: 3 views COMPARISON: None FINDINGS: The lungs are clear. No pleural effusion or pneumothorax. The cardiomediastinal silhouette is normal. No acute osseous abnormality within the visible skeleton. Althea Douglas - External History and Physical Notes Date/Time Note Provider Source 2024-06-19 15:41:27 Reason for consultation: Colon cancer screening HPI Patient here for colon cancer screening. Denies nausea, vomiting, abdominal pain or diarrhea. No melena or blood in stool. This is a televisit I am in my office and patient is at home. Family History of Colon Cancer: No Prior colonoscopy: 2018 Past Medical History: Past Medical History: Diagnosis Date Adenomatous colon polyp Adverse effect of anesthesia 1987 patient was aware of beginning of procedure Headache(784.0) Rarely History of dysplastic nevus 06/17/2021 Hyperlipidemia Migraine Past Surgical History: Past Surgical History: Procedure Laterality Date COLONOSCOPY WITH SNARE N/A 07/01/2015 Performed by Pro Talbert MD at [facility] COLONOSCOPY WITH TOTAL INTRAVENOUS ANESTHESIA N/A 10/24/2018 Performed by Pro Talbert MD at [facility] COLONOSCOPY, FLEXIBLE; WITH BIOPSY, SINGLE OR MULTIPLE 07/01/2015 Serrated repeat in 3 yrs-2018 LAMINECTOMY 2006 C-5 LUMBAR/SACRAL INTERLAMINAR EPIDURAL STEROID INJECTION N/A 12/07/2023 Performed by Alexx Hirsch MD at [facility] PILONIDAL CYST EXCISION 1987 REPAIR OF REDUCIBLE UMBILICAL HERNIA, > 5 YEARS N/A 05/31/2018 Performed by Juwan Brown MD at [facility] VASECTOMY Family History: Family History Problem Relation Name Age of Onset Hypertension Mother Cancer Neg Hx Blood Disease Neg Hx Diabetes Mellitus Neg Hx Heart Disease Neg Hx Stroke Neg Hx Anesthesia Problems Neg Hx Social History: Social History Socioeconomic History Marital status: Spouse name: Not on file Number of children: 2 Years of education: 13 Highest education level: Not on file Occupational History 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 NO STDs. 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 CARDIOVASCULAR: No chest pain or palpitations GASTROINTESTINAL: As per HPI PULMONARY: No dyspnea or cough PE: There were no vitals taken for this visit. Assessment/Plan: Colon cancer screening: Risks associated with colonoscopy including perforation requiring surgery, bleeding, reaction to medications and missed lesions discussed. Patient understands and agrees. Please note that patient want colonoscopy with TIVA. [facility] 2023-11-20 08:01:07 HPI: Ronnie Lee presents for aggravation of chronic right lumbar pain extending into right thigh to right proximal knee. No lower extremity intermittent numbness . Subjective bilateral extremity weakness with pain. Onset since 2016. Aggravation mainly with prolonged gait. Pain level is 4 out of 10 at present . No bladder/bowel incontinence. Previous treatments also include consultation with orthopedics, Dr. Briseno, and received right sacroiliac injection under fluoroscopy March 2023 with no benefits.. Patient denies previous spine surgery, JACK/TPI, and formal physical therapy.Symptoms are now daily, wax and wanes, and is achy in quality. 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 HENT: - for neck pain, neck stiffness and sinus pressure. Eyes: Negative for visual disturbance. Cardiovascular: Negative for palpitations and leg swelling. Gastrointestinal: Negative for nausea, vomiting, abdominal pain, diarrhea, constipation, blood in stool, anal bleeding and rectal pain. Musculoskeletal: + for back pain and gait problem. Negative for myalgias, joint swelling and arthralgias. Neurological: Negative for dizziness, tremors, seizures, syncope, speech difficulty, weakness, light-headedness, numbness and headaches. This Psychiatric/Behavioral: Negative for dysphoric mood and decreased concentration. Past Medical History: Diagnosis Date Adverse effect of anesthesia 1987 patient was aware of beginning of procedure Headache(784.0) Rarely History of dysplastic nevus 06/17/2021 Migraine Past Surgical History: Procedure Laterality Date COLONOSCOPY WITH SNARE N/A 07/01/2015 Performed by Pro Talbert MD at [facility] COLONOSCOPY WITH TOTAL INTRAVENOUS ANESTHESIA N/A 10/24/2018 Performed by Pro Talbert MD at [facility] COLONOSCOPY, FLEXIBLE; WITH BIOPSY, SINGLE OR MULTIPLE 07/01/2015 Serrated repeat in 3 yrs-2018 LAMINECTOMY 2007 C-5 PILONIDAL CYST EXCISION 1988 REPAIR OF REDUCIBLE UMBILICAL HERNIA, > 5 YEARS N/A 05/31/2018 Performed by Juwan Brown MD at [facility] VASECTOMY Social History Tobacco Use Smoking status: Never Smokeless tobacco: Former Types: Chew Quit date: 2012 Substance Use Topics Alcohol use: Yes Comment: Occasionally Drug use: No Family History Problem Relation Name Age of Onset Hypertension Mother Cancer Neg Hx Blood Disease Neg Hx Diabetes Mellitus Neg Hx Heart Disease Neg Hx Stroke Neg Hx Anesthesia Problems Neg Hx Current Outpatient Medications on File Prior to Visit Medication Sig Dispense Refill Efinaconazole (Jublia) 10 % apply externally Solution Apply to affected nail(s) once daily (Patient not taking: Reported on 08/14/2023.) 8 mL 11 Gabapentin 300 MG oral Capsule 1 po q HS x 7 days, then 1 po BID x 7 days, then 1 po TID. 90 capsule 2 Gabapentin 300 MG oral Capsule Take 1 capsule (300 mg total) by mouth 3 times daily. (Patient not taking: Reported on 08/14/2023.) 90 capsule 0 Lorazepam (ATIVAN) 0.5 MG oral Tablet tablet Take 2 tablets po upon arrival to MRI for claustrophobia.. 6 tablet 0 No current facility-administered medications on file prior to visit. Physical Exam: General: Patient is well appearing and in no apparent distress Pulm: Respirations are regular and unlabored Skin: no rashes Patient is oriented to person, place and time. CN 2-12 are grossly intact bilaterally Motor exam: Decreased lumbar flexion/extension with right lumbar pain Trigger points: Right lumbar paraspinals Job's -, Spasticity- , Babinski - Motor strength Right Left Hip Flexion 5/5 5/5 Knee Ext. 5/5 5/5 Knee Flex 5/5 5/5 Dorsiflexion 5/5 5/5 EHL 5/5 5/5 Plantarflexion 5/5 5/5 DTRs Right Left Knee 2+ 2+ Ankle 1+ 1+ Sensation: Grossly intact DTR: Babinski: Normal Edema: No SLR Right: Equivocal to full elevation Left: Equivocal to full elevation Ronnie's: Negative Leg Length discrepancy: Negative Gait: Antalgic for the right lower extremity X-RAYS/MRI: March 2023 right hip:FINDINGS: There is arthrosis of the right hip joint with mild to moderate joint space narrowing, slightly progressed compared to 12/17/2020. There are small marginal osteophytes of the right acetabulum and right femoral head neck junction. January 2022 bilateral knee x-rayNo acute fracture is identified. Severe bilateral medial compartment narrowing present. No significant joint effusion is present. Tiny metallic foreign body seen within or just on top of the left patellar tendon measuring 1 mm in size. Bilateral suprapatellar enthesophyte. Small patellofemoral osteophytes noted bilaterally. December 2020 lumbar x-rayThere are 5 non rib bearing lumbar vertebral bodies. The vertebral body heights are equal. There is a decreased intervertebral disc space at L5-S1 Spondylolisthesis is not visualized. There is endplate sclerosis with early osteophytosis. The pedicles are unremarkable at L1-L4. The sacrum and sacroiliac joints are symmetric. There is endplate sclerosis and osteophyte formation at L4 and L5.. IMPRESSION: Degenerative changes the lower lumbar spine MRI lumbar October 2023Numbering: Last fully formed disc space is designated L5-S1. Spinal cord: The conus medullaris is normal in size, signal intensity, and position, terminating at the L1 level. Osseous structures: No scoliotic deformity is present. There is no significant spondylolisthesis. Pedicles are congenitally short. Vertebral body heights are preserved. No aggressive osseous lesions are identified. Discs: Degenerative disc disease manifest by loss of T2 hyperintensity and loss of disc height. Greatest disease burden at L5-S1. Individual level evaluation: L1/L2: No disc bulge. Bilateral facet arthropathy. No canal or foraminal stenosis. L2/L3: Minimal disc bulge. Bilateral facet hypertrophy. No canal narrowing. No foraminal stenosis. L3/L4: Minimal broad disc bulge. Left greater than right facet hypertrophy. Mild dorsal epidural lipomatosis. No canal narrowing. No foraminal stenosis. L4/L5: Mild broad disc bulge. Near symmetric facet hypertrophy. No canal narrowing. [id number] bilateral foraminal stenosis. L5/S1: Broad disc bulge. Near symmetric facet hypertrophy. No canal narrowing. Moderate left and mild right foraminal stenosis. Paraspinal soft tissues: A T2 hyperintense cystic focus in the liver is incompletely evaluated, but was present in the CT examination of the abdomen and pelvis August 28, 2017. Normal aortic caliber. IMPRESSION: 1. Relatively mild degenerative changes in the lumbar spine without critical canal or foraminal stenosis. Component Latest Ref Rng 11/17/2023 ALKALINE PHOSPHATASE, SERUM 39 - 119 U/L 59 AST (SGOT) 18 - 40 U/L 30 ALT (SGPT) 11 - 55 U/L 42 Component Latest Ref Rng 07/05/2022 HEMOGLOBIN A1C 4.8 - 5.6 % 5.6 ESTIM. AVG GLU (EAG) mg/dL 114 Diagnosis: Aggravation of chronic right radicular pain Moderate left and mild right L5-S1 foraminal narrowing Minimal/moderate right hip OA Advanced bilateral knee OA Plan: lumbar MRI images 2023 brought up on computer screen and reviewed with patient. Report/reading as per board certified radiologist also given to patient. Patient referred to formal REFERRAL TO PHYSICAL THERAPY SPINE-EXTERNAL: lumbar treatments: HEP reviewed and pamphlet given Potential option of Lumbar JACK discussed and pamphlet given : Possible complications of epidural steroid injections discussed in full to include: infection, bleeding, hemmorrage, puncture of internal organs, nerve injury, paralysis, even . Epidural steroid pamphlet as well as list of medications to avoid discussed and handed to patient for review. Patient is understandably frustrated to have pain persisting since 2016. He desired to proceed with lumbar JACK with TIVA. Interlaminar L5-S1 JACK with TIVA requested Patient defers surgical considerations Resume Gabapentin 300 MG oral Cap TID Follow up if still no alleviation This document was created using a voice recognition transcribing system. Incorrect words or phrases may have been missed during proofreading. Please interpret accordingly. O TRIMMER [facility] Notes Date/Time Note Provider Source 2024-12-20 08:06:49 Chief Complaint Patient presents with Physical Patient is fasting. No other concerns Fidelia Espinosa MA T [facility] 2024-12-09 08:17:08 Chief Complaint Patient presents with Ear Problem Patient complains of right ear hearing loss. Natividad Jaramillo MA [facility] 2024-11-26 08:51:14 Chief Complaint Patient presents with Skin Problem Marge Sullivan MA O TRIMMER Marge Sullivan MA [facility] 2024-06-19 15:22:51 Chief Complaint Patient presents with Colon Cancer Screening JOCELYN Porras Miranda BANKS [facility] 2024-04-24 08:18:22 Chief Complaint Patient presents with Urinary Hesitancy c/o here for difficulty in urination x 1 month Louann Owen LVN Patient's blood pressure taken in right arm with large size cuff. Louann Owen LVN Patient's height is 6 feet and 1 inches tall Louann Owen LVN [facility] 2024-02-02 07:53:17 Chief Complaint Patient presents with Ear Pain Left ear pain when he was cleaning with a q-tip. He did notice some blood. Fidelia Espinosa MA II Fidelia Espinosa MA, II [facility] 2023-11-20 10:42:14 Patient is here for f/u for back pain. Pain level is 4/10 Took no pain medication today. Pain does not radiate Major Diaz MA I [facility]
[2025-01-04 15:30] LABS: Albumin 3.7 g/dL (3.4-5.0); Albumin/Globulin Ratio 1.1 (1.1-1.8); Anion Gap 9.1 mEq/L (5.0-15.0); Bilirubin Total 0.7 mg/dL (0.2-1.0); Globulin 3.3 g/dL (2.3-3.5); Potassium 4.1 mEq/L (3.5-5.1)
[2025-01-04 15:44] LABS: Absolute Eosinophils 0.2 K/uL (0-0.5); Absolute Lymphocytes (CBC) 1.9 K/uL (0.7-4.9); Absolute Monocytes 0.5 K/uL (0.1-1.3); Absolute Neutrophil 3.3 K/uL (1.8-8.0); Basophils % 0.5 % (0-1.3); Hematocrit 43.9 % (39.6-49.0); Hemoglobin 14.9 g/dL (13.6-17.9); Lymphocytes % 32.2 % (15.3-44.8); MCH 31.1 pg (27.0-35.0); MCHC 33.9 g/dL (32.0-36.0); MCV 91.8 fL (80-100); MPV 10.7 fL (7.6-11.3); Monocytes % 8.3 % (3.3-12.3); Platelets 168 thou/uL (152-406); RBC Red Blood Cell Count 4.78 M/uL (4.33-5.43); Red Cell Distribution Width 13.3 % (12.1-15.2)
[2025-01-04 16:06] LABS: Specific Gravity 1.022 (1.005-1.030); Sqamous Epithelial None Seen /HPF (None Seen); Urine Bacteria None Seen /HPF (<20); Urine Bilirubin NEGATIVE (Negative); Urine Blood Negative (Negative); Urine Clarity Clear (Clear); Urine Color Light-Yellow (Yellow); Urine Culture Reflex Order NOT NEEDED; Urine Glucose NEGATIVE (Negative); Urine Ketones NEGATIVE (Negative); Urine Microscopic Reflex YN ORDER UMIC; Urine Nitrite NEGATIVE (Negative); Urine Protein NEGATIVE (Negative); Urine RBC <5 /HPF (None Seen); Urine Urobilinogen Normal (Normal); Urine WBC <5 /HPF (<5)
--- NOTE | 2025-01-04 17:05 | RAD REPORT ---
EXAMINATION: CT Abdomen Pelvis W Contrast CLINICAL INDICATION: Male, 59 years old. ABD PAIN TECHNIQUE: CT abdomen and pelvis was performed, after the administration of IV contrast, [facility]. Axial, sagittal and coronal reconstructions were obtained. One or more of the following dose reduction techniques were used: Automated exposure control, adjustment of the mA and k V according to patient size, and iterative reconstruction. Unless otherwise specified, incidental findings do not require dedicated imaging follow-up. COMPARISON: No prior exam. FINDINGS: LOWER CHEST: The visualized lung bases are clear. LIVER: Normal in size and contour. Within the inferior right lower lobe posteriorly a 2.6 cm well-cir cumscribed fluid density cyst is noted, benign in appearance. Other subcentimeter hypodense lesions may represent small cysts although not well characterized. No suspicious focal lesion. BILIARY SYSTEM: No suspicious abnormalities. SPLEEN: Normal size. No focal lesion. PANCREAS: No mass, ductal dilation, or gabriel-pancreatic fluid. ADRENALS: Normal; no mass. KIDNEYS: Normal size and contour. No hydronephrosis. URINARY BLADDER: Unremarkable. GASTROINTESTINAL TRACT: No evidence of free air, significant intra-abdominal free fluid, bowel obstru ction or abscess. APPENDIX: Normal appendix. LYMPH NODES: No lymphadenopathy. MUSCULOSKELETAL: No acute osseous abnormality. Lower lumbar spondylotic changes and bilateral SI join t degenerative changes with left iliac subchondral cyst containing vacuum/gas. ADDITIONAL FINDINGS: Right inguinal hernia containing fat, with sac measuring 3.5 x 3.7 cm in greates t axial dimensions. Small left inguinal hernia containing fat. IMPRESSION: Right inguinal hernia containing fat. Other incidental findings as above. No other acute or concerning abnormalities seen in the abdomen or pelvis.
--- NOTE | 2025-01-04 17:07 | ER ---
Nurse's Notes [facility] Name: Ronnie Lee Age: 59 yrs Sex: Male : 1965 Arrival Date: 01/04/2025 Time: 14:12 Bed 8 Private MD: Diagnosis: Inguinal hernia Presentation: 01/04 14:41 Chief complaint: Patient states: HERNIA TO RIGHT GROIN ONSET LAST NIGHT. PT REPORTS cm10 PAIN THAT IS GETTING WORSE. Coronavirus screen: Client denies travel out of the [place] in the last 14 days. Ebola Screen: Patient denies travel to an Ebola-affected area in the 21 days before illness onset. Initial Sepsis Screen: Does the patient meet any 2 criteria? No. Patient's initial sepsis screen is negative. Does the patient have a suspected source of infection? No. Patient's initial sepsis screen is negative. Risk Assessment: Do you want to hurt yourself or someone else? Patient reports no desire to harm self or others. Onset of symptoms was January 04, 2025. 14:41 Method Of Arrival: Ambulatory cm10 14:41 Acuity: JACK 3 cm10 Triage Assessment: 14:43 General: Appears in no apparent distress. uncomfortable, Behavior is calm, cooperative. cm10 Pain: Complains of pain in right femoral area Pain currently is 3 out of 10 on a pain scale. Neuro: No deficits noted. Level of Consciousness is awake, alert, obeys commands, Oriented to person, place, time, situation, Appropriate for age. Respiratory: No deficits noted. Airway is patent Respiratory effort is even, unlabored, Respiratory pattern is regular, symmetrical. Historical: - Allergies: 14:42 Topamax; cm10 - Home Meds: 14:42 Lipitor 40 mg Oral tablet [Active]; Flomax 0.4 mg Oral capsule [Active]; cm10 - PMHx: 14:42 Hypercholesterolemia; cm10 - PSHx: 14:42 HERNIA REPAIR- UMBILICAL; cm10 - Immunization history:: Adult Immunizations up to date. - Infectious Disease History:: Denies. - Social history:: Smoking status: Patient denies any tobacco usage or history of. Screenin:57 [facility] ED Fall Risk Assessment (Adult) History of falling in the last 3 months, iw including since admission No falls in past 3 months (0 pts) Confusion or Disorientation No (0 pts) Intoxicated or Sedated No (0 pts) Impaired Gait No (0 pts) Mobility Assist Device Used No (0 pt) Altered Elimination No (0 pt) Score/Fall Risk Level 0 - 2 = Low Risk Oriented to surroundings, Maintained a safe environment. Abuse screen: Denies threats or abuse. Denies injuries from another. Nutritional screening: No deficits noted. Tuberculosis screening: No symptoms or risk factors identified. Assessment: 15:10 General: Appears in no apparent distress. Behavior is calm, cooperative. Pain: iw Complains of pain in pelvis and right femoral area Pain currently is 2 out of 10 on a pain scale. Neuro: Level of Consciousness is awake, alert, obeys commands, Oriented to person, place, time, situation, Moves all extremities. Full function. Cardiovascular: Patient's skin is warm and dry. Respiratory: Respiratory effort is even, unlabored, Respiratory pattern is regular, symmetrical. GI: Abdomen is non-distended, Abd is soft in right upper quadrant and left upper quadrant Abdomen is tender to palpation in right lower quadrant. Derm: Skin is intact, is healthy with good turgor. Musculoskeletal: Range of motion: intact in all extremities. 16:58 Reassessment: Patient appears in no apparent distress at this time. Patient and/or iw family updated on plan of care and expected duration. Pain level reassessed. Patient is alert, oriented x 3, equal unlabored respirations, skin warm/dry/pink. Vital Signs: 14:41 BP 117 / 81; Pulse 67; Resp 17; Temp 97.3(IR); Pulse Ox 100% on R/A; Weight 103.42 kg; cm10 Height 6 ft. 1 in. ; Pain 3/10; 17:26 BP 121 / 79; Pulse 75; Resp 17; Pulse Ox 100% ; bp 14:41 Body Mass Index 30.08 (103.42 kg, 185.42 cm) cm10 14:41 Pain Scale: Adult cm10 ED Course: 14:17 Patient arrived in ED. sj2 14:17 Ivy Michelle MD is Attending Physician. sp3 14:42 Triage completed. cm10 14:43 Thomas Arguello, RN is Primary Nurse. bp 14:43 Arm band placed on right wrist. Patient placed in an exam room, on a stretcher. cm10 15:12 Initial lab(s) drawn, by me, sent to lab. Inserted saline lock: 20 gauge in right iw antecubital area, using aseptic technique. Blood collected. Flushed with 10 mL NS. 16:24 CT Abd/Pelvis - IV Contrast Only In Process Unspecified. EDMS 16:57 Patient has correct armband on for positive identification. Placed in gown. Cardiac iw monitor on. 17:06 Darci Huber MD is Referral Physician. sp3 17:26 No provider procedures requiring assistance completed. IV discontinued, intact, bp bleeding controlled, No redness/swelling at site. Pressure dressing applied. Administered Medications: No medications were administered Medication: 16:57 VIS not applicable for this client. iw Outcome: 17:06 Discharge ordered by . sp3 17:26 Discharged to home ambulatory, with family, bp 17:26 Condition: stable 17:26 Discharge instructions given to patient, Instructed on discharge instructions, follow up and referral plans. medication usage, Demonstrated understanding of instructions, follow-up care, medications, Prescriptions given X 1, 17:27 Patient left the ED. bp Signatures: Dispatcher [employer] EDMS Philomena Freeman, RN RN iw Thomas Arguello RN RN bp Ivy Michelle MD MD sp3 Sara Brewer RN RN cm10 Jazmine Tipton 2
--- NOTE | 2025-01-04 17:07 | EDPHYS ---
Physician Documentation [facility] Name: Ronnie Lee Age: 59 yrs Sex: Male : 1965 Arrival Date: 01/04/2025 Time: 14:12 Bed 8 Private MD: ED Physician Ivy Michelle HPI: 01/04 15:42 This 59 yrs old Male presents to ER via Ambulatory with complaints of HERNIA. sp3 15:42 59-year-old male with history of hyperlipidemia presents to the ED with right inguinal sp3 swelling and pain concerns of hernia. 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 He denies any other symptoms or prior surgeries in the abdomen. He denies headache, neck pain, chest pain, shortness of breath, upper abdominal pain, back pain, dysuria, urinary frequency, bleeding, GI bleeding, vomiting, diarrhea or any other signs or symptoms on ROS at this time.. Historical: - Allergies: 14:42 Topamax; cm10 - Home Meds: 14:42 Lipitor 40 mg Oral tablet [Active]; Flomax 0.4 mg Oral capsule [Active]; cm10 - PMHx: 14:42 Hypercholesterolemia; cm10 - PSHx: 14:42 HERNIA REPAIR- UMBILICAL; cm10 - Immunization history:: Adult Immunizations up to date. - Infectious Disease History:: Denies. - Social history:: Smoking status: Patient denies any tobacco usage or history of. ROS: 15:44 Constitutional: Negative for fever, chills, and weight loss, Eyes: Negative for injury, sp3 pain, redness, and discharge, Neck: Negative for injury, pain, and swelling, Cardiovascular: Negative for chest pain, palpitations, and edema, Respiratory: Negative for shortness of breath, cough, wheezing, and pleuritic chest pain, Back: Negative for injury and pain, MS/Extremity: Negative for injury and deformity, Skin: Negative for injury, rash, and discoloration, Neuro: Negative for headache, weakness, numbness, tingling, and seizure, Psych: Negative for depression, anxiety, suicide ideation, homicidal ideation, and hallucinations, Allergy/Immunology: Negative for hives, rash, and allergies, Endocrine: Negative for neck swelling, polydipsia, polyuria, polyphagia, and marked weight changes, 15:44 All other systems are negative, Exam: 15:44 Constitutional: This is a well developed, well nourished patient who is awake, alert, sp3 and in no acute distress. Head/Face: Normocephalic, atraumatic. Eyes: Pupils equal round and reactive to light, extra-ocular motions intact. Lids and lashes normal. Conjunctiva and sclera are non-icteric and not injected. Cornea within normal limits. Periorbital areas with no swelling, redness, or edema. Neck: Trachea midline, no thyromegaly or masses palpated, and no cervical lymphadenopathy. Supple, full range of motion without nuchal rigidity, or vertebral point tenderness. No Meningismus. Chest/axilla: Normal chest wall appearance and motion. Nontender with no deformity. No lesions are appreciated. Cardiovascular: Regular rate and rhythm with a normal S1 and S2. No gallops, murmurs, or rubs. Normal PMI, no JVD. No pulse deficits. Respiratory: Lungs have equal breath sounds bilaterally, clear to auscultation and percussion. No rales, rhonchi or wheezes noted. No increased work of breathing, no retractions or nasal flaring. Back: No spinal tenderness. No costovertebral tenderness. Full range of motion. Skin: Warm, dry with normal turgor. Normal color with no rashes, no lesions, and no evidence of cellulitis. MS/ Extremity: Pulses equal, no cyanosis. Neurovascular intact. Full, normal range of motion. Neuro: Awake and alert, GCS 15, oriented to person, place, time, and situation. Cranial nerves II-XII grossly intact. Motor strength 5/5 in all extremities. Sensory grossly intact. Cerebellar exam normal. Normal gait. Psych: Awake, alert, with orientation to person, place and time. Behavior, mood, and affect are within normal limits. 15:44 Abdomen/GI: Right inguinal swelling consistent with inguinal hernia noted., Vital Signs: 14:41 BP 117 / 81; Pulse 67; Resp 17; Temp 97.3(IR); Pulse Ox 100% on R/A; Weight 103.42 kg; cm10 Height 6 ft. 1 in. ; Pain 3/10; 17:26 BP 121 / 79; Pulse 75; Resp 17; Pulse Ox 100% ; bp 14:41 Body Mass Index 30.08 (103.42 kg, 185.42 cm) cm10 14:41 Pain Scale: Adult cm10 MDM: 14:47 Medical Screening Exam initiated sp3 15:45 Data reviewed: vital signs, nurses notes, lab test result(s), radiologic studies. ED sp3 course: 59-year-old male with right inguinal hernia versus other pathology. Will obtain CT scan of the abdomen pelvis, routine labs and consult general surgery as needed. Disposition pending workup and patient course. Abdomen soft and patient is in no acute distress. Nonsurgical abdomen. Vital signs normal. Pain is controlled.. 01/04 14:47 Order name: CBC with Diff; Complete Time: 16:07 sp3 01/04 14:47 Order name: CMP; Complete Time: 16:07 sp3 01/04 14:47 Order name: Lipase; Complete Time: 16:07 sp3 01/04 14:47 Order name: Urinalysis w/ reflexes; Complete Time: 16:07 sp3 01/04 14:47 Order name: CT Abd/Pelvis - IV Contrast Only; Complete Time: 17:06 sp3 01/04 14:47 Order name: IV Saline Lock; Complete Time: 15:05 sp3 01/04 14:47 Order name: Labs collected and sent; Complete Time: 15:05 sp3 Administered Medications: No medications were administered Disposition Summary: 01/04/25 17:06 Discharge Ordered Notes: Location: Home sp3 Condition: Stable sp3 Diagnosis - Inguinal hernia sp3 Followup: sp3 - With: Darci Huber MD - When: Upon discharge from the Emergency Department - Reason: Continuance of care Discharge Instructions: - Discharge Summary Sheet sp3 - Inguinal Hernia, Adult sp3 Forms: - Medication Reconciliation Form sp3 - Antibiotic Education sp3 - Prescription Opioid Use sp3 - Patient Portal Instructions sp3 - Leadership Thank You Letter sp3 Prescriptions: - Tramadol 50 mg Oral Tablet - take 1 tablet ORAL route every 8 hours as needed; 12 tablet; Refills: 0, sp3 Product Selection Permitted Signatures: Dispatcher [employer] Ivy Bobo MD MD sp3 Sara Brewer RN RN cm10
[2025-01-04 17:50] VITALS: TEMP 97.3; O2SAT 100
[2025-01-04 17:51] VITALS: BP 121/79
== END 2025-01-04 17:27 | disposition home or self-care (01) ==
LOC: ER 14:12
DX: K40.90 Unilateral inguinal hernia, without obstruction or gangrene, not specified as recurrent (principal)
CPT/HCPCS: 85025; 81001; 36415; 83690; 80053; 74177; Q9967; 99284

== ENCOUNTER 2025-06-24 21:35 | Emergency (ER) | payer OTHER ==
[2025-06-24] MEDS ORDERED: HYDROCODONE/APAP 10/325 TAB ONE (22:15)
[2025-06-24] MEDS ORDERED: CYCLOBENZAPRINE 10 MG TAB ONE (22:15)
[2025-06-24] MEDS ORDERED: CEPHALEXIN 250 MG CAP ONE (22:35)
--- NOTE | 2025-06-24 23:40 | ER ---
Nurse's Notes [facility] Name: Ronnie Lee Age: 60 yrs Sex: Male : 1965 Arrival Date: 06/24/2025 Time: 21:35 Bed 5 Private MD: Diagnosis: Acute left arm superficial thrombophlebitis, acute superficial thrombosis of left basilic and left cephalic veins Presentation: 06/24 22:03 Chief complaint: Patient states: left arm pain and swelling post IV insertion on 06/20. lg3 Coronavirus screen: Client denies travel out of the [place] in the last 14 days. At this time, the client does not indicate any symptoms associated with coronavirus-19. Ebola Screen: No symptoms or risks identified at this time. Initial Sepsis Screen: Does the patient meet any 2 criteria? No. Patient's initial sepsis screen is negative. Does the patient have a suspected source of infection? No. Patient's initial sepsis screen is negative. Risk Assessment: Do you want to hurt yourself or someone else? Patient reports no desire to harm self or others. Onset of symptoms is unknown. 22:03 Method Of Arrival: Ambulatory lg3 22:03 Acuity: JACK 3 lg3 Triage Assessment: 22:05 General: Appears in no apparent distress. uncomfortable, Behavior is calm, cooperative. lg3 Pain: Complains of pain in left arm. EENT: No deficits noted. No signs and/or symptoms were reported regarding the EENT system. Neuro: No deficits noted. [place] Agitation-Sedation Scale (RASS): 0 - Alert and Calm Level of Consciousness is awake, alert, obeys commands, Oriented to person, place, time, situation. Cardiovascular: No deficits noted. Denies chest pain, shortness of breath, Capillary refill < 3 seconds Clubbing of nail beds is absent JVD is absent Patient's skin is warm and dry. Respiratory: No deficits noted. Airway is patent Respiratory effort is even, unlabored, Respiratory pattern is regular, symmetrical. GI: No deficits noted. No signs and/or symptoms were reported involving the gastrointestinal system. : No signs and/or symptoms were reported regarding the genitourinary system. Derm: No deficits noted. No signs and/or symptoms reported regarding the dermatologic system. Skin is intact, is healthy with good turgor, Skin is dry, Skin is normal, Skin temperature is warm. Musculoskeletal: Circulation, motion, and sensation intact. Range of motion: intact in all extremities, Swelling present in left arm. Historical: - Allergies: 22:05 Topamax; lg3 - PMHx: 22:05 Hypercholesterolemia; lg3 - PSHx: 22:05 HERNIA REPAIR- UMBILICAL; spinal (HERNIA REPAIR- UMBILICAL); lg3 - Immunization history:: Adult Immunizations up to date. - Infectious Disease History:: Denies. - Social history:: Smoking status: Patient denies any tobacco usage or history of. Patient uses alcohol, occasionally. - Family history:: not pertinent. Screenin:00 [facility] ED Fall Risk Assessment (Adult) History of falling in the last 3 months, vc1 including since admission No falls in past 3 months (0 pts) Confusion or Disorientation No (0 pts) Intoxicated or Sedated No (0 pts) Impaired Gait No (0 pts) Mobility Assist Device Used No (0 pt) Altered Elimination No (0 pt) Score/Fall Risk Level 0 - 2 = Low Risk Oriented to surroundings, Maintained a safe environment, Educated pt \T\ family on fall prevention, incl call for assistance when getting out of bed, Assessed \T\ reinforced patient's understanding of fall precautions, Hourly rounding (assess needs \T\ fall precautionary measures) done. Abuse screen: Denies threats or abuse. Nutritional screening: No deficits noted. Tuberculosis screening: No symptoms or risk factors identified. Assessment: 22:00 General: Appears in no apparent distress. uncomfortable, well groomed, well developed, vc1 well nourished, Behavior is calm, cooperative, appropriate for age. Pain: Complains of pain in left arm Pain does not radiate. Pain currently is 5 out of 10 on a pain scale. Quality of pain is described as pressure. Neuro: Level of Consciousness is awake, alert, obeys commands, Oriented to person, place, time, situation, Appropriate for age. Cardiovascular: Heart tones S1 S2 present Capillary refill < 3 seconds. Cardiovascular: Edema present in left arm. Respiratory: Airway is patent Respiratory effort is even, unlabored, Respiratory pattern is regular, symmetrical, Breath sounds are clear bilaterally. GI: No deficits noted. No signs and/or symptoms were reported involving the gastrointestinal system. : No deficits noted. No signs and/or symptoms were reported regarding the genitourinary system. EENT: Pt in neck brace from cervical surgery on 06/20/25. Derm: Skin is intact, Skin is dry, Skin is normal, Skin temperature is warm. Musculoskeletal: Circulation, motion, and sensation intact. Range of motion: intact in all extremities. 22:56 Reassessment: Patient appears in no apparent distress at this time. No changes from vc1 previously documented assessment. Patient and/or family updated on plan of care and expected duration. Pain level reassessed. Patient is alert, oriented x 3, equal unlabored respirations, skin warm/dry/pink. 06/25 00:20 Reassessment: Patient appears in no apparent distress at this time. Patient and/or vc1 family updated on plan of care and expected duration. Pain level reassessed. Patient is alert, oriented x 3, equal unlabored respirations, skin warm/dry/pink. Patient states feeling better. Patient states symptoms have improved. 00:22 Reassessment: No changes from previously documented assessment. Patient and/or family br2 updated on plan of care and expected duration. Pain level reassessed. Patient is alert, oriented x 3, equal unlabored respirations, skin warm/dry/pink. Patient states feeling better. Patient states symptoms have improved. Vital Signs: 06/24 22:03 BP 170 / 94; Pulse 61; Resp 16 S; Temp 97.9(O); Pulse Ox 100% on R/A; Weight 104.33 kg lg3 (R); Height 6 ft. 1 in. (R); Pain 6/10; 22:56 BP 146 / 82; Pulse 56; Resp 15; Pulse Ox 100% ; vc1 06/25 00:00 BP 138 / 71; Pulse 57; Resp 16; Pulse Ox 97% ; vc1 00:21 BP 145 / 82; Pulse 62; Resp 18 S; Pulse Ox 99% on R/A; br2 06/24 22:03 Body Mass Index 30.34 (104.33 kg, 185.42 cm) lg3 06/24 22:03 Pain Scale: Adult lg3 [place] Coma Score: 07:40 Eye Response: spontaneous(4). Motor Response: obeys commands(6). Verbal Response: sp4 oriented(5). Total: 15. ED Course: 06/24 21:38 Patient arrived in ED. gm2 22:02 Pelon Howard MD is Attending Physician. sp4 22:04 Triage completed. lg3 22:05 Arm band placed on right wrist. lg3 22:05 Patient has correct armband on for positive identification. Bed in low position. Call vc1 light in reach. Provided Education on: Plan of care. Pulse ox on. NIBP on. 22:08 Rita Tello, RN is Primary Nurse. kb4 22:08 Inserted saline lock: 20 gauge in right antecubital area, using aseptic technique. kb4 Blood collected. Flushed with 10 mL NS. 22:35 UPPER EXTREMITY VENOUS UNILATE In Process Unspecified. EDMS 06/25 00:20 IV discontinued, intact, bleeding controlled, No redness/swelling at site. Pressure br2 dressing applied. 00:24 No provider procedures requiring assistance completed. vc1 Administered Medications: 06/24 22:18 Drug: [place] PO 10 mg-325 mg 1 tabs PO once Route: PO; vc1 23:00 Follow up: Response: No adverse reaction; Marked relief of symptoms; Pain is decreased vc1 22:18 Drug: Cyclobenzaprine PO 10 mg PO once Route: PO; vc1 23:00 Follow up: Response: No adverse reaction; Marked relief of symptoms vc1 22:37 Drug: Cephalexin PO 500 mg PO once Route: PO; vc1 06/25 00:22 Follow up: Response: No adverse reaction vc1 Medication: 00:21 VIS not applicable for this client. br2 Outcome: 06/24 23:39 Discharge ordered by . sp4 06/25 00:23 Patient left the ED. br2 00:24 Discharged to home ambulatory, with significant other, vc1 00:24 Condition: stable 00:24 Discharge instructions given to patient, Instructed on discharge instructions, follow up and referral plans. medication usage, Demonstrated understanding of instructions, follow-up care, medications, Prescriptions given X 1, Signatures: Dispatcher [employer] EDMS Abril Cordoba RN RN lg3 Angela Bran RN RN vc1 Pelon Howard MD MD sp4 Deb Carroll gm2 Amanda Fox RN RN br2 Rita Tello, JOSHUA RN kb4
--- NOTE | 2025-06-24 23:40 | EDPHYS ---
Physician Documentation [facility] Name: Ronnie Lee Age: 60 yrs Sex: Male : 1965 Arrival Date: 06/24/2025 Time: 21:35 Bed 5 Private MD: ED Physician Pelon Howard HPI: 06/24 22:02 This 60 yrs old Other Race Male presents to ER via Unassigned with complaints of Arm sp4 Pain, arm swelling/ post op neck surgery on 06-20-25. 06/25 07:40 60-year-old male with arm pain and swelling left upper arm postop after 06/20/2025 sp4 anterior neck fusion. Patient is concerned about DVT in the left upper arm.. Historical: - Allergies: 06/24 22:05 Topamax; lg3 - PMHx: 22:05 Hypercholesterolemia; lg3 - PSHx: 22:05 HERNIA REPAIR- UMBILICAL; spinal (HERNIA REPAIR- UMBILICAL); lg3 - Immunization history:: Adult Immunizations up to date. - Infectious Disease History:: Denies. - Social history:: Smoking status: Patient denies any tobacco usage or history of. Patient uses alcohol, occasionally. - Family history:: not pertinent. ROS: 06/25 07:40 Constitutional: Negative for fever, chills, and weight loss, Eyes: Negative for injury, sp4 pain, redness, and discharge, ENT: Negative for injury, pain, and discharge, Neck: Negative for injury, positive for postoperative anterior incision, patient is wearing neck brace Cardiovascular: Negative for chest pain, palpitations, and edema, Respiratory: Negative for shortness of breath, cough, wheezing, and pleuritic chest pain, Abdomen/GI: Negative for abdominal pain, nausea, vomiting, diarrhea, and constipation, Back: Negative for injury and pain, MS/Extremity: Negative for injury and deformity, Skin: Negative for injury, rash, and discoloration, Neuro: Negative for headache, weakness, numbness, tingling, and seizure, Psych: Negative for depression, anxiety, All other systems are negative, Exam: 07:40 Constitutional: This is a well developed, well nourished patient who is awake, alert, sp4 and in no acute distress. Head/Face: Normocephalic, atraumatic. Eyes: Pupils equal round and reactive to light, extra-ocular motions intact. Lids and lashes normal. Conjunctiva and sclera are not injected. Cornea within normal limits. Periorbital areas with no swelling, redness, or edema. ENT: Nares patent. No nasal discharge, no septal abnormalities noted. Tympanic membranes are normal and external auditory canals are clear. Oropharynx with no redness, swelling, or masses, exudates, or evidence of obstruction, uvula midline. Mucous membranes moist. Neck: Trachea midline, no thyromegaly or masses palpated, positive for postop anterior neck incision from recent neck fusion. Chest/axilla: Normal chest wall appearance and motion. Nontender with no deformity. No lesions are appreciated. Cardiovascular: Regular rate and rhythm with a normal S1 and S2. No gallops, murmurs, or rubs. No pulse deficits. Respiratory: Lungs have equal breath sounds bilaterally, clear to auscultation and percussion. No rales, rhonchi or wheezes noted. No increased work of breathing, no retractions or nasal flaring. Abdomen/GI: Soft, with normal bowel sounds. No distension or tympany. No guarding or rebound. No evidence of tenderness throughout. Back: No spinal tenderness. No costovertebral tenderness. Skin: Warm, dry with normal turgor. Normal color with no rashes, no lesions, positive for redness small amount of swelling just medial to the left antecubital fossa tracking to the left medial upper arm MS/ Extremity: Pulses equal, no cyanosis. Neurovascular intact. Full, normal range of motion. Neuro: Awake and alert, GCS 15, oriented to person, place, time, and situation. Cranial nerves II-XII grossly intact. Motor strength 5/5 in all extremities. Sensory grossly intact. Psych: Awake, alert, with orientation to person, place and time. Behavior, mood, and affect are within normal limits Vital Signs: 06/24 22:03 BP 170 / 94; Pulse 61; Resp 16 S; Temp 97.9(O); Pulse Ox 100% on R/A; Weight 104.33 kg lg3 (R); Height 6 ft. 1 in. (R); Pain 6/10; 22:56 BP 146 / 82; Pulse 56; Resp 15; Pulse Ox 100% ; vc1 06/25 00:00 BP 138 / 71; Pulse 57; Resp 16; Pulse Ox 97% ; vc1 00:21 BP 145 / 82; Pulse 62; Resp 18 S; Pulse Ox 99% on R/A; br2 06/24 22:03 Body Mass Index 30.34 (104.33 kg, 185.42 cm) lg3 06/24 22:03 Pain Scale: Adult lg3 Mary Coma Score: 07:40 Eye Response: spontaneous(4). Motor Response: obeys commands(6). Verbal Response: sp4 oriented(5). Total: 15. MDM: 06/24 22:08 Medical Screening Exam initiated sp4 23:36 ED course: EXAM: US Duplex Left Upper Extremity Veins CLINICAL HISTORY: PAIN TECHNIQUE: sp4 Real-time duplex ultrasound scan of the left upper extremity veins integrating B-mode two-dimensional vascular structure, Doppler spectral analysis, color flow Doppler imaging and compression. COMPARISON: No relevant prior studies available. FINDINGS: Deep veins: Unremarkable. No DVT in the subclavian, axillary, brachial, radial or ulnar veins. The veins demonstrate normal color flow, are normally compressible, with normal phasic flow and/or augmentation response. Superficial veins: Intraluminal thrombus with lack of compressibility and flow involving the left basilic and cephalic veins. Soft tissues: No acute findings. IMPRESSION: 1. No evidence for deep venous thrombosis within the left upper extremity. 2. Superficial thrombosis of the left basilic and cephalic veins. . 06/25 07:43 Differential diagnosis: contusion, abrasion, tendonitis, Left arm cellulitis. Data sp4 reviewed: vital signs, nurses notes, radiologic studies, ultrasound. Consideration of Admission/Observation Escalation of care including admission/observation considered. 06/24 23:20 Order name: CBC with Diff sp4 06/24 23:20 Order name: CMP sp4 06/24 23:20 Order name: PT-INR; Complete Time: 00:14 sp4 06/24 22:13 Order name: UPPER EXTREMITY VENOUS UNILATE EDMS Administered Medications: 06/24 22:18 Drug: [place] PO 10 mg-325 mg 1 tabs PO once Route: PO; vc1 23:00 Follow up: Response: No adverse reaction; Marked relief of symptoms; Pain is decreased vc1 22:18 Drug: Cyclobenzaprine PO 10 mg PO once Route: PO; vc1 23:00 Follow up: Response: No adverse reaction; Marked relief of symptoms vc1 22:37 Drug: Cephalexin PO 500 mg PO once Route: PO; vc1 06/25 00:22 Follow up: Response: No adverse reaction vc1 Disposition Summary: 06/24/25 23:39 Discharge Ordered Notes: Location: Home sp4 Problem: new sp4 Symptoms: have improved sp4 Condition: Stable sp4 Diagnosis - Acute left arm superficial thrombophlebitis, acute superficial thrombosis of left sp4 basilic and left cephalic veins Followup: sp4 - With: Private Physician - When: 7 - 10 days - Reason: Recheck today's complaints Discharge Instructions: - Discharge Summary Sheet sp4 - Thrombophlebitis sp4 Forms: - Patient Portal Instructions sp4 Prescriptions: - Cephalexin 500 mg Oral Capsule - take 1 capsule ORAL route every 12 hours for 10 days; 20 capsule; Refills: 0, sp4 Product Selection Permitted Signatures: Dispatcher [employer] EDAbril Patino RN RN lg3 Angela Bran RN RN vc1 Pelon Howard MD MD sp4 Corrections: (The following items were deleted from the chart) 06/24 22:10 22:10 Extremity Venous Uni [employer]+US.RAD.BRZ ordered. EDMS EDMS 23:21 23:21 CBC+H.LAB.BRZ ordered. EDMS EDMS 23:21 23:21 COMPREHENSIVE METABOLIC PANEL+C.LAB.BRZ ordered. EDMS EDMS 23:21 23:21 PROTIME (+INR)+COAG.LAB.BRZ ordered. EDMS EDMS
[2025-06-25] LABS: PT Prothrombin Time 12.0 SECONDS (10-13.0); Protime INR 1.06
[2025-06-25 00:30] LABS: Absolute Lymphocytes (CBC) 1.6 K/uL (0.7-4.9); Hematocrit 43.5 % (39.6-49.0); Hemoglobin 14.7 g/dL (13.6-17.9); MCH 31.1 pg (27.0-35.0); MCHC 33.8 g/dL (32.0-36.0); MCV 91.9 fL (80-100); MPV 10.2 fL (7.6-11.3); Nucleated RBC Absolute Count 0.0 (0-0); Nucleated Red Blood Cells % 0.1 % (0-0); RBC Red Blood Cell Count 4.74 M/uL (4.33-5.43); White Blood Count 6.40 thou/uL (4.3-10.9)
[2025-06-25 00:42] VITALS: TEMP 97.9
[2025-06-25 00:52] LABS: ALT/SGPT 141.0 U/L (16-61); AST/SGOT 71.0 U/L (15-37); Albumin 3.6 g/dL (3.4-5.0); Albumin/Globulin Ratio 0.9 (1.1-1.8); Alkaline Phosphatase 76.0 U/L (45-117); Anion Gap 10.1 mEq/L (5.0-15.0); BUN Blood Urea Nitrogen 21.0 mg/dL (7-18); Globulin 4.0 g/dL (2.3-3.5); Glucose Level 98.0 mg/dL (74-106); Potassium 4.1 mEq/L (3.5-5.1)
[2025-06-25 00:56] VITALS: BP 145/82; O2SAT 99
--- NOTE | 2025-06-25 07:17 | RAD REPORT ---
EXAM: US Duplex Left Upper Extremity Veins CLINICAL HISTORY: PAIN TECHNIQUE: Real-time duplex ultrasound scan of the left upper extremity veins integrating B-mode two-dimensional vascular structure, Doppler spectral analysis, color flow Doppler imaging and compression. COMPARISON: No relevant prior studies available. FINDINGS: Deep veins: Unremarkable. No DVT in the subclavian, axillary, brachial, radial or ulnar veins. The veins demonstrate normal color flow, are normally compressible, with normal phasic flow and/or augmentation response. Superficial veins: Intraluminal thrombus with lack of compressibility and flow involving the left b asilic and cephalic veins. Soft tissues: No acute findings. IMPRESSION: 1. No evidence for deep venous thrombosis within the left upper extremity. 2. Superficial thrombosis of the left basilic and cephalic veins. Electronically signed by: Anum Esquivel MD 06/24/2025 11:26 PM CDT Due to temporary technical issues with the PACS/[employer] reporting system, reports are being karla d by the in-house radiologist without review as a courtesy to ensure prompt reporting the interpreting radiologist is fully responsible for the content of the report. Transcribed Date/Time: 06/25/2025 7:17 AM
== END 2025-06-25 00:23 | disposition home or self-care (01) ==
LOC: ER 21:35
DX: I80.02 Phlebitis and thrombophlebitis of superficial vessels of left lower extremity (principal); I82.612 Acute embolism and thrombosis of superficial veins of left upper extremity; Z98.890 Other specified postprocedural states
CPT/HCPCS: 36415; 80053; 85025; 85610; 93971; 99284